=== PATIENT | female | born 1955 | race Caucasian/White ===

== ENCOUNTER 2023-02-21 19:58 | Inpatient (IN) | payer MEDICARE, SELFPAY ==
--- NOTE | ~2023-02-21 | CT_ITS ---
EXAMINATION: CT HEAD WITHOUT CONTRAST CLINICAL INFORMATION: Slurred speech COMPARISON: 11/26/2018 TECHNIQUE: Contiguous axial imaging was performed from the skull base to vertex without intravenous administration of contrast. This CT examination was performed using dose optimization techniques as appropriate, variously including the following: *Automated exposure control *Adjustment of mA and/or kV according to patient size (this includes techniques or standardized protocols for targeted exams where dose is matched to indication/reason for exam; i.e. extremities or head) *Use of iterative reconstruction technique DLP: 593 mGy-cm FINDINGS: There is no evidence of acute intracranial hemorrhage or territorial infarction. No abnormal mass effect or midline shift is seen. [place] to white matter differentiation is well preserved. No extra-axial fluid collections are identified. The ventricles are normal in size. There is no abnormal attenuation within the brain parenchyma. The osseous structures and soft tissues are normal. The mastoid air cells and visualized portions of the paranasal sinuses are notable for left maxillary sinus disease.. CT/CT head/brain wo IV con IMPRESSION: No acute intracranial pathology.
--- NOTE | ~2023-02-21 | XR_ITS ---
EXAMINATION: XR CHEST CLINICAL INFORMATION: Weakness. COMPARISON: 11/26/2018 chest radiograph. TECHNIQUE: 2 views of the chest were obtained. FINDINGS: Support devices: Right-sided central venous port with tip terminating in the superior vena cava. Coarsened interstitial markings are seen bilaterally with opacities at the lung bases. Irregular pleural thickening extending along the lateral margin of the left upper lobe measuring approximately 4.8 x 1.4 cm. The heart and mediastinal structures are unremarkable. XR/XR chest 2V IMPRESSION: 1. Irregular pleural thickening laterally in the left upper lobe was not seen previously. Malignancy cannot be excluded. 2. Coarsened lung markings also represent interval increase in the previous study this could represent progression of chronic changes however an acute process cannot be excluded. A CT scan is recommended.
[2023-02-21 20:06] VITALS: BP 87/43; BP 90/50; PULSE 109; PULSE 112; RESP 18; O2SAT 91; O2SAT 96; BMI 20.8
--- NOTE | 2023-02-21 20:15 | ECG_ITS ---
Test Reason : AMS Blood Pressure : / mmHG Vent. Rate : 108 BPM Atrial Rate : 108 BPM P-R Int : 136 ms QRS Dur : 072 ms QT Int : 306 ms P-R-T Axes : 058 014 214 degrees QTc Int : [address] & T wave abnormality, consider inferolateral ischemia Abnormal ECG When compared with ECG of 26-NOV-2018 19:58, Nonspecific T wave abnormality, worse in Inferior leads T wave inversion now evident in Anterolateral leads Referred By: Tessie Soto Electronically Signed By:ADELFO CHONG
[2023-02-21] MEDS: 0.9 % Sodium Chloride 1,000 ML 999 ML IV (20:22)
--- NOTE | 2023-02-21 20:24 | ED_ITS ---
HPI - General Adult General Chief complaint: General Medical Stated complaint: LETHARGIC CHEMO PT Time Seen by Provider: 02/21/23 20:04 Source: patient and EMS Mode of arrival: EMS Limitations: no limitations History of Present Illness HPI narrative: 67 yo female with history of ovarian cancer w/ mets followed by oncology Dr Nichols ([facility]) on palliative chemotherapy here with concern for weakness, lethargy since receiving chemo on Wednesday. Patient reports >12 hrs ago she noticed difficulty with finding words. No headache, dizziness, chest pain, shortness of breath, abdominal pain, vomiting, diarrhea, fevers, chills. Of note, patient has a chronic left chest wound involving her breast which she reports does not look worsening. Related Data Allergies Allergy/AdvReac Type Severity Reaction Status Date / Time No Known Allergies Allergy Unverified 03/14/20 18:25 [No Known Allergies*] Review of Systems Review of Systems: Yes all other systems are reviewed and are negative Constitutional: Constitutional: Reports no additional constitutional complaints, Denies body ache(s), Denies chills, Reports fatigue, Denies fever(s), Denies headache(s) and Reports weakness Eyes: Eyes: Reports no additional eye complaints and Denies change in vision ENT: Reports system reviewed and no additional complaints, except as documented, Denies dizziness, Denies headache(s), Denies nasal congestion, Denies nasal discharge and Denies neck pain Cardiovascular: Cardiovascular: Reports no additional cardiovascular complaints, Denies chest pain, Denies leg edema and Denies dyspnea Respiratory: Respiratory: Reports no additional respiratory complaints, Denies cough and Denies dyspnea Gastrointestinal: Gastrointestinal: Reports no additional gastrointestinal complaints, Denies abdominal pain, Denies diarrhea, Denies nausea and Denies vomiting Genitourinary: Genitourinary: Reports no additional female genitourinary compl aints and Denies urinary incontinence Musculoskeletal: Musculoskeletal: Reports no additional musculoskeletal complaints, Denies back pain, Denies arthralgias, Denies joint swelling, Denies neck pain, Denies numbness and Denies tingling Integumentary/Breasts: Skin/Breast: Reports system reviewed and no additional complaints, except as docu and Denies rash Neurologic: Reports system reviewed and no additional complaints, except as documented, Denies dizziness, Denies headache(s), Denies numbness, Denies tingling and Reports weakness Endocrine: Endocrine: Reports fatigue [facility] Past Medical History Attestation statement: The following information was validated with the patient. Source: old records reviewed and nursing notes reviewed Social History Social History Alcohol intake: current Alcohol intake frequency: 0-2 drinks per day Alcohol type: wine Smoked in Last 30 Days: No Use of substances other than those prescribed or required for medical reasons: No Advance Directives: No Advance Directives Information Provided: Yes Physical Exam ED Vital Signs: Vital Signs - 24 hr 02/21/23 20:06 02/21/23 20:27 Pulse Rate 109 H Respiratory Rate 18 Blood Pressure 87/43 L 103/46 L Pulse Oximetry 91 L Oxygen Delivery Method Room Air BMI result Body Mass Index 20.8 Const General: alert and ill appearing Orientation/consciousness: patient oriented x3 Limitations: no limitations HENMT Head: Yes normal to inspection Ears: hearing grossly normal bilaterally Eyes General: appearance normal, both eyes and all related structures Pupils: Equal, round and reactive pupils present Neck Neck: Yes normal visual inspection, Yes full ROM, Yes no lymphadenopathy and Yes no meningeal signs Chest Chest/axillae images: 1. 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-brown stool heme negative Inspection: Yes normal to inspection Palpation (GI): Soft to palpation and nontender General: Yes no CVA tenderness Back/Spine/Pelvis Back: no CVA tenderness Thoracic/Lumbar Spine: thoracic and lumbar spine normal to inspection Skin General skin exam: no rashes or lesions noted Neuro Other: During conversation patient having difficulty finding words-speech is not slurred General: patient oriented x3, moves all extremities, no meningeal signs and Unable to assess gait Cranial nerves: Yes CN's II-XII intact bilaterally, Yes Equal, round and reactive pupils present, Yes Bilaterally intact EOM present, Yes Nystagmus not present, Yes Normal facial strength present and Yes Midline tongue present Cognition (Neuro): normal cognition Gait exam (Neuro): Unable to assess gait Motor exam (neuro): 5/5 motor strength present throughout Sensory Exam: Normal double simultaneous stimulation for sensation Extrem General: Yes normal to inspection NIH Stroke Scale Internal: Initial- Upon Arrival Level of Consciousness: Alert Level of Consciousness Questions: Answers both questions correctly Level of Consciousness Commands: Performs both tasks correctly Best Gaze: Normal Visual: No visual loss Facial Palsy: Normal Motor Arm (Right): No drift Motor Arm (Left): No drift Motor Leg (Right): No drift Motor Leg (Left): No drift Limb Ataxia: Absent Sensory: Normal Best Language: No aphasia Dysarthia: Mild to moderate dysarthria Extinction and Inattention: No abnormality Score: 1 Course Course Course Narrative: 0-Informed patient has fever and low blood pressure. NS 30cc/kg ordered. Nursing aware. Reevaluation(s) Reevaluation #1: 0020-focused sepsis exam done. Medications Administered Generic Name Dose Route Start Last Admin Trade Name Freq PRN Reason Stop Dose Admin Sodium Chloride 1,548 mls @ 1,548 mls/hr 02/21/23 23:11 02/21/23 23:20 Ns 30 ml/kg infuse over 1 hr (1548 ml) 02/22/23 00:10 1,548 mls/hr IV Administration .Q1H STA Discontinued Medications Generic Name Dose Route Start Last Admin Trade Name Freq PRN Reason Stop Dose Admin Acetaminophen 975 mg 02/21/23 23:11 02/21/23 23:21 Acetaminophen 325 Mg Tablet PO 02/21/23 23:12 975 mg ONCE ONE Administration Sodium Chloride 1,000 mls @ 999 mls/hr 02/21/23 20:16 02/21/23 20:22 Ns IV 02/21/23 21:16 999 mls/hr .Q1H1M STA Administration Ceftriaxone Sodium 1 gm/ 50 mls @ 100 mls/hr 02/21/23 20:17 02/21/23 21:29 Sodium Chloride IV 02/21/23 20:46 100 mls/hr ONCE ONE Administration Magnesium Sulfate 2 gm in 50 mls @ 25 mls/hr 02/21/23 22:09 02/21/23 23:30 Magnesium Sulfate/H2o IV 02/22/23 00:08 Infused ONCE ONE Infusion Medical Decision Making Medical Decision Making MDM Narrative: 67 yo female with history of ovarian cancer w/ mets followed by oncology Dr Nichols ([facility]) on weekly palliative chemotherapy here with concern for weakness, lethargy since receiving chemo on Wednesday. Patient reports >12 hrs ago she noticed difficulty with finding words. No headache, dizziness, chest pain, short ness of breath, abdominal pain, vomiting, diarrhea, fevers, chills. Of note, patient has a chronic left chest wound involving her breast which she reports does not look worsening. ON arrival patient is ill appearing, quite frail. Her blood pressure is 80's systolic although she tells me her blood pressure is normally low. She is afebrile She is having difficulty finding her words otherwise normal neuro Will need labs including blood cultures/lactic acid, CXR, CT head, covid screen, UA. Will give IVF. At this time infection is considered and so I will give a dose of antibiotics. NIH 1-not tpa candidate d/t length of symptoms Differential Diagnosis Differential Diagnoses: The differential diagnosis associated with the present ation includes brain mets, ICH vs CVA Electrolyte abnormaity Anemia, low concern with GIB with brown stool on rectal, occult negative infection-PNA/UTI/bacteremia, neutropenic fever Admission/Observation Consideration of admission/observation: Escalation of care including admission/observation considered Patient with anemia, leukopenia, hypomagnesemia, hyponatremia-necessitating IV replacement Patient also with difficulty with word finding with history of ovarian cancer with Mets. CT head is negative but patient may require advanced imaging and admission Consult Healthcare Provider Management of the patient was discussed with: Hospitalist Discussed patient with Dr. Sanders who accepted admission Lab Data MDM Lab Attestation statement: I reviewed the patient's lab results. Labs show anemia, leukopenia, hypomagnesemia, hyponatremia 02/21/23 21:06 02/21/23 21:07 Labs: Lab Results 02/21/23 02/21/23 02/21/23 Range/Units 21:06 21:06 21:07 WBC 0.3 L* (4.8-10.8) X10*3/uL RBC 2.05 L (4.20-5.50) X10*6/uL Hgb 5.8 L* (12.0-16.0) g/dl Hct 18.3 L* (37.0-47.0) % MCV 89.3 (80.0-98.0) fL MCH 28.3 (27.0-33.0) pg MCHC 31.7 (31.0-35.0) g/dl RDW 15.6 (11.0-16.0) % Plt Count 126 L (160-400) X10*3/uL MPV 12.0 (9.4-12.3) fL Immature Gran % (Auto) Cancelled Neut % (Auto) Cancelled Lymph % (Auto) Cancelled [place] % (Auto) Cancelled Eos % (Auto) Cancelled Baso % (Auto) Cancelled Lymph # (Auto) Cancelled [place] # (Auto) Cancelled Eos # (Auto) Cancelled Baso # (Auto) Cancelled Abs Immat Gran (auto) Cancelled Absolute Neuts (auto) Cancelled Absolute Nucleated RBC 0.000 (0.0-0.012) X10*3/uL Nucleated RBC % (auto) 0.0 (0.0-0.2) /100WBC Neutrophils % (Manual) 32 L (45-73) % Lymphocytes % (Manual) 36 (20-40) % Atypical Lymphs % (Man) 4 (0-6) % Monocytes % (Manual) 24 H (2-11) % Eosinophils % (Manual) 4 (0-4) % Abs Neuts (Manual) Not Reportable Lymphocytes # (Manual) 0.1 L (1.2-4.9) X10*3/uL Monocytes # (Manual) 0.1 (0.1-1.2) X10*3/uL Platelet Estimate NORMAL (NORMAL) Plt Morphology Comment NORMAL RBC Morphology NOTED Ovalocytes 1+ (5-14) /OIF [place] Cells 1+ (0-2) /OIF PT (11.1-13.3) SEC INR (0.9-1.1) Sodium 127 L (135-145) mmol/L Potassium 3.5 (3.3-5.1) mmol/L Chloride 95 L (96-108) mmol/L Carbon Dioxide 24 (22-29) mmol/L Anion Gap 12 (12-20) BUN 13 (9-16) mg/dL Creatinine 0.51 (0.5-1.4) mg/dL Estim Creat Clear Calc 85.8 Estimated GFR > 60 Random Glucose 115 (60-115) mg/dL Lactic Acid (0.5-2.0) mmol/L Calcium 7.7 L (8.4-10.2) mg/dL Magnesium 1.3 L* (1.6-2.6) mg/dL Total Bilirubin 1.0 (0.0-1.0) mg/dL Direct Bilirubin 0.6 H (0.0-0.5) mg/dL AST 23 (5-31) U/L ALT 17 (0-31) U/L Alkaline Phosphatase 141 H (39-117) U/L Total Creatine Kinase 9 L (26-140) U/L Troponin I High Sens < 2.7 (<3.5-17.0) ng/L Total Protein 5.7 L (6.5-8.0) g/dL Albumin 2.1 L (3.5-5.0) g/dL Stool Occult Blood (NEGATIVE) COVID-19 (NATHAN) (Negative) COVID-19 Clin Com Blood Type Antibody Screen Crossmatch 02/21/23 02/21/23 02/21/23 Range/Units 21:07 21:07 21:26 WBC (4.8-10.8) X10*3/uL RBC (4.20-5.50) X10*6/uL Hgb (12.0-16.0) g/dl Hct (37.0-47.0) % MCV (80.0-98.0) fL MCH (27.0-33.0) pg MCHC (31.0-35.0) g/dl RDW (11.0-16.0) % Plt Count (160-400) X10*3/uL MPV (9.4-12.3) fL Immature Gran % (Auto) Neut % (Auto) Lymph % (Auto) [place] % (Auto) Eos % (Auto) Baso % (Auto) Lymph # (Auto) [place] # (Auto) Eos # (Auto) Baso # (Auto) Abs Immat Gran (auto) Absolute Neuts (auto) Absolute Nucleated RBC (0.0-0.012) X10*3/uL Nucleated RBC % (auto) (0.0-0.2) /100WBC Neutrophils % (Manual) (45-73) % Lymphocytes % (Manual) (20-40) % Atypical Lymphs % (Man) (0-6) % Monocytes % (Manual) (2-11) % Eosinophils % (Manual) (0-4) % Abs Neuts (Manual) Lymphocytes # (Manual) (1.2-4.9) X10*3/uL Monocytes # (Manual) (0.1-1.2) X10*3/uL Platelet Estimate (NORMAL) Plt Morphology Comment RBC Morphology Ovalocytes /OIF [place] Cells /OIF PT 20.9 H (11.1-13.3) SEC INR 1.7 H (0.9-1.1) Sodium (135-145) mmol/L Potassium (3.3-5.1) mmol/L Chloride (96-108) mmol/L Carbon Dioxide (22-29) mmol/L Anion Gap (12-20) BUN (9-16) mg/dL Creatinine (0.5-1.4) mg/dL Estim Creat Clear Calc Estimated GFR Random Glucose (60-115) mg/dL Lactic Acid 1.3 (0.5-2.0) mmol/L Calcium (8.4-10.2) mg/dL Magnesium (1.6-2.6) mg/dL Total Bilirubin (0.0-1.0) mg/dL Direct Bilirubin (0.0-0.5) mg/dL AST (5-31) U/L ALT (0-31) U/L Alkaline Phosphatase (39-117) U/L Total Creatine Kinase (26-140) U/L Troponin I High Sens (<3.5-17.0) ng/L Total Protein (6.5-8.0) g/dL Albumin (3.5-5.0) g/dL Stool Occult Blood (NEGATIVE) COVID-19 (NATHAN) Negative (Negative) COVID-19 Clin Com See Note Blood Type Antibody Screen Crossmatch 02/21/23 02/21/23 Range/Units 22:27 22:34 WBC (4.8-10.8) X10*3/uL RBC (4.20-5.50) X10*6/uL Hgb (12.0-16.0) g/dl Hct (37.0-47.0) % MCV (80.0-98.0) fL MCH (27.0-33.0) pg MCHC (31.0-35.0) g/dl RDW (11.0-16.0) % Plt Count (160-400) X10*3/uL MPV (9.4-12.3) fL Immature Gran % (Auto) Neut % (Auto) Lymph % (Auto) [place] % (Auto) Eos % (Auto) Baso % (Auto) Lymph # (Auto) [place] # (Auto) Eos # (Auto) Baso # (Auto) Abs Immat Gran (auto) Absolute Neuts (auto) Absolute Nucleated RBC (0.0-0.012) X10*3/uL Nucleated RBC % (auto) (0.0-0.2) /100WBC Neutrophils % (Manual) (45-73) % Lymphocytes % (Manual) (20-40) % Atypical Lymphs % (Man) (0-6) % Monocytes % (Manual) (2-11) % Eosinophils % (Manual) (0-4) % Abs Neuts (Manual) Lymphocytes # (Manual) (1.2-4.9) X10*3/uL Monocytes # (Manual) (0.1-1.2) X10*3/uL Platelet Estimate (NORMAL) Plt Morphology Comment RBC Morphology Ovalocytes /OIF [place] Cells /OIF PT (11.1-13.3) SEC INR (0.9-1.1) Sodium (135-145) mmol/L Potassium (3.3-5.1) mmol/L Chloride (96-108) mmol/L Carbon Dioxide (22-29) mmol/L Anion Gap (12-20) BUN (9-16) mg/dL Creatinine (0.5-1.4) mg/dL Estim Creat Clear Calc Estimated GFR Random Glucose (60-115) mg/dL Lactic Acid (0.5-2.0) mmol/L Calcium (8.4-10.2) mg/dL Magnesium (1.6-2.6) mg/dL Total Bilirubin (0.0-1.0) mg/dL Direct Bilirubin (0.0-0.5) mg/dL AST (5-31) U/L ALT (0-31) U/L Alkaline Phosphatase (39-117) U/L Total Creatine Kinase (26-140) U/L Troponin I High Sens (<3.5-17.0) ng/L Total Protein (6.5-8.0) g/dL Albumin (3.5-5.0) g/dL Stool Occult Blood NEGATIVE (NEGATIVE) COVID-19 (NATHAN) (Negative) COVID-19 Clin Com Blood Type AB Positive Antibody Screen NEGATIVE Crossmatch See Detail Independent Interpretation I performed an independent interpretation of an: EKG, Plain X-Ray and CT Scan Interpretation: I independently reviewed the EKG which is sinus tachycardia with a rate of 108, normal MO, normal QRS normal QT I independently reviewed the CXR, CT scan of the head and agree with the rad report Radiology Impression Discussion of test interpretation with radiology: I have reviewed the rad iologist's reading. Radiologist Impression: [address] [address] [address] Scan Report Signed Patient: Brittney Snider MR#: [id number] : 1955 Acct:[id number] Age/Sex: 67 / F ADM Date: 02/21/23 Loc: .ED Attending Dr: Ordering Physician: Tessie Smith NP Date of Service: 02/21/23 Procedure(s): CT head/brain wo IV con Accession Number(s): [id number] cc: Tessie Smith NP~ EXAMINATION: CT HEAD WITHOUT CONTRAST CLINICAL INFORMATION: Slurred speech? COMPARISON: 11/26/2018 TECHNIQUE: Contiguous axial imaging was performed from the skull base to vertex without intravenous administration of contrast. This CT examination was performed using dose optimization techniques as appropriate, variously including the following: *Automated exposure control *Adjustment of mA and/or kV according to patient size (this includes techniques or standardized protocols for targeted exams where dose is matched to indication/reason for exam; i.e. extremities or head) *Use of iterative reconstruction technique DLP: 593 mGy-cm FINDINGS: There is no evidence of acute intracranial hemorrhage or territorial infarction. No abnormal mass effect or midline shift is seen. Holden to white matter differentiation is well preserved. No extra-axial fluid collections are identified. The ventricles are normal in size. There is no abnormal attenuation within the brain parenchyma. The osseous structures and soft tissues are normal. The mastoid air cells and visualized portions of the paranasal sinuses are notable for left maxillary sinus disease.. ? CT/CT head/brain wo IV con IMPRESSION: No acute intracranial pathology. [place] [address] XRay Report Signed Patient: Brittney Snider MR#: [id number] : 1955 Acct:[id number] Age/Sex: 67 / F ADM Date: 02/21/23 Loc: HO.ED Attending Dr: Ordering Physician: Tessie Smith NP Date of Service: 02/21/23 Procedure(s): XR chest 2V Accession Number(s): [id number] cc: Tessie Smith NP~ EXAMINATION: XR CHEST CLINICAL INFORMATION: Weakness. COMPARISON: 11/26/2018 chest radiograph. TECHNIQUE: 2 views of the chest were obtained. FINDINGS: Support devices: Right-sided central venous port with tip terminating in the superior vena cava. Coarsened interstitial markings are seen bilaterally with opacities at the lung bases. Irregular pleural thickening extending along the lateral margin of the left upper lobe measuring approximately 4.8 x 1.4 cm. The heart and mediastinal structures are unremarkable. XR/XR chest 2V IMPRESSION: 1. Irregular pleural thickening laterally in the left upper lobe was not seen previously. Malignancy cannot be excluded. 2. Coarsened lung markings also represent interval increase in the previous study this could represent progression of chronic changes however an acute process cannot be excluded. A CT scan is recommende Independent Historian Clinical information obtained from an independent historian. 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 Discussion with patient about goals of care and family. Patient is full code. Review of outpatient records Discharge Plan Discharge Clinical Impression: Leukopenia, Anemia, Hypomagnesemia, Acute hyponatremia, Alteration in speech Patient Disposition: Admitted As Inpatient
[2023-02-21 20:27] VITALS: BP 103/46
[2023-02-21 21:24] LABS: Mean Corpuscular HGB Conc 31.7 g/dl (31.0-35.0); Mean Corpuscular Hemoglobin 28.3 pg (27.0-33.0); Mean Corpuscular Volume 89.3 fL (80.0-98.0); Platelet Count 126 X10*3/uL (160-400); Red Blood Count 2.05 X10*6/uL (4.20-5.50); Red Cell Distribution Width 15.6 % (11.0-16.0)
[2023-02-21 21:29] LABS: COVID-19 Test Negative (Negative); IDNOW Serial# BCCEAD1C
[2023-02-21] MEDS: cefTRIAXone sodium 1 GM in 0.9 % Sodium Chloride 50 ML IV (21:29)
[2023-02-21 21:31] LABS: WBC ABN SCTR FOR CBC 1
[2023-02-21 21:39] LABS: Hematocrit 18.3 % (37.0-47.0); Hemoglobin 5.8 g/dl (12.0-16.0)
[2023-02-21 21:45] LABS: INTERNATIONAL NORM RATIO 1.7 (0.9-1.1); Prothrombin Time 20.9 SEC (11.1-13.3)
[2023-02-21 21:46] LABS: Lactic Acid 1.3 mmol/L (0.5-2.0)
[2023-02-21 21:59] LABS: Troponin-I High Sensitivity < 2.7 ng/L (<3.5-17.0)
[2023-02-21 22:05] LABS: Alanine Aminotransferase 17 U/L (0-31); Albumin Level 2.1 g/dL (3.5-5.0); Alkaline Phosphatase 141 U/L (39-117); Anion Gap 12 (12-20); Aspartate Amino Transferase 23 U/L (5-31); Bilirubin Direct 0.6 mg/dL (0.0-0.5); Blood Urea Nitrogen 13 mg/dL (9-16); Calcium 7.7 mg/dL (8.4-10.2); Carbon Dioxide 24 mmol/L (22-29); Chloride 95 mmol/L (96-108); Creatinine Clr Calc Pharmacy 85.8; Estimated Glomerular Filt Rate > 60; Glucose Random 115 mg/dL (60-115); Magnesium 1.3 mg/dL (1.6-2.6); Potassium 3.5 mmol/L (3.3-5.1); Sodium 127 mmol/L (135-145); Total Protein 5.7 g/dL (6.5-8.0)
[2023-02-21 22:35] LABS: Atypical Lymphs Percent Manual 4 % (0-6); Eosinophils Percent Manual 4 % (0-4); Lymphocytes Percent Manual 36 % (20-40); Monocytes Percent Manual 24 % (2-11); Neutrophils Percent Manual 32 % (45-73)
[2023-02-21 22:36] LABS: Burr Cells 1+ (0-2) /OIF; Ovalocytes 1+ (5-14) /OIF; Platelet Estimate NORMAL (NORMAL); Platelet Morphology Comment NORMAL; RBC Morphology NOTED
[2023-02-21 22:38] LABS: Lymphocytes Absolute Manual 0.1 X10*3/uL (1.2-4.9); Monocytes Absolute Manual 0.1 X10*3/uL (0.1-1.2); White Blood Count 0.3 X10*3/uL (4.8-10.8)
[2023-02-21 22:39] LABS: OBS Int Ctl Valid YES; OBS1 NEGATIVE (NEGATIVE)
[2023-02-21] MEDS: Magnesium Sulfate/H2O 2 GM/50 ML PIGGYBACK IV (22:53)
[2023-02-21 22:59] VITALS: BP 90/40; PULSE 103; RESP 24; TEMP 38; O2SAT 95
--- NOTE | 2023-02-21 23:18 | PM.IMHP ---
History of Present Illness Date of Service: 02/21/23 Chief Complaint: increased weakness 67-year-old female with history of stage IV ovarian cancer, left arm lymphedema due to cancer spread comes into the hospital with complaints of increased weakness. Patient is currently undergoing palliative chemotherapy, and last session was about 4 days ago. Patient reports no nausea vomiting, chest pain, no abdominal pain, no diarrhea constipation, no urinary symptoms and no lower extremity edema. Just generalized weakness . She denies any dizziness, headache and no change in vision. On arrival to the ED patient hemodynamically stable with slightly increased heart rate, blood pressure in the 80s over 40s, but asymptomatic Labs are significant for WBC count of 0.3, hemoglobin of 5.8, hematocrit of 18.3, with <1000 neutrophils Sodium 127, INR 1.7, magnesium of 1.3, UA negative for acute infection Chest x-ray shows a regular pleural thickening laterally to the left upper lobe of, malignancy cannot be excluded, Head CT shows no acute intracranial pathology Patient will be admitted for further management Review of Systems Review of Systems: Yes all other systems are reviewed and are negative [facility] Medical History History of cataract HTN (hypertension), benign Hypothyroidism Lymphedema Metastatic malignant neoplasm to ovary Ovarian cancer Portal hypertension Surgical History History of salpingo-oophorectomy Social History Alcohol intake: current Alcohol intake frequency: 0-2 drinks per day Alcohol type: wine Patient Tobacco Use Status: Never used Tobacco Smoked in Last 30 Days: No Use of substances other than those prescribed or required for medical reasons: No Advance Directives: No Advance Directives Information Provided: Yes Nutrition Risks: Difficulty swallowing Meds Allergies Allergy/AdvReac Type Severity Reaction Status Date / Time No Known Allergies Allergy Unverified 03/14/20 18:25 [No Known Allergies*] Active Medications: Current Medications Acetaminophen (Acetaminophen 325 Mg Tablet) 650 mg PO Q6H PRN PRN Reason: Pain, Mild (Pain Scale 1-3) Docusate Sodium (Docusate Sodium 100 Mg Capsule) 100 mg PO DAILY PRN PRN Reason: Constipation Magnesium Sulfate (Magnesium Sulfate/H2o) 2 gm in 50 mls @ 25 mls/hr IV ONCE ONE Stop: 02/22/23 00:08 Last Admin: 02/21/23 22:53 Dose: 25 mls/hr Sodium Chloride (Ns) 1,548 mls @ 1,548 mls/hr 30 ml/kg infuse over 1 hr (1548 ml) IV .Q1H STA Stop: 02/22/23 00:10 Ondansetron HCl (Ondansetron Hcl 4 Mg/2 Ml Vial) 4 mg IVPUSH Q8H PRN PRN Reason: Nausea and Vomiting Sodium Chloride (0.9 % Sodium Chloride Flush 3 Ml Syringe) 3 ml IVFLUSH QSHIFT [facility] Physical Exam Vital Signs and Narrative: Vital Signs: Last Vital Signs Temp 100.4 F 02/21/23 22:59 Pulse 103 H 02/21/23 22:59 Resp 24 H 02/21/23 22:59 BP 90/40 L 02/21/23 22:59 Pulse Ox 95 02/21/23 22:59 O2 Del Method Room Air 02/21/23 22:59 BMI result Body Mass Index 20.8 Const: General: cooperative and no acute distress Orientation/consciousness: patient oriented x3 Eyes: General: appearance normal, both eyes and all related structures Resp: Effort & Inspection: normal respiratory effort Auscultation: clear to auscultation bilaterally Cardio: Rate: regular rate Rhythm: regular rhythm GI: Palpation (GI): Soft to palpation Auscultation: normal bowel sounds Skin: Other: Significant edema, as well as skin changes in the left upper arm Neuro: General: patient oriented x3 Cognition (Neuro): normal cognition Extrem: General: Yes normal to inspection and Yes no pedal edema Results Labs 02/21/23 21:06 02/21/23 21:07 Labs: Laboratory Results - last 24 hr 02/21/23 02/21/23 02/21/23 21:06 21:07 21:07 MCV 89.3 MCH 28.3 MCHC 31.7 RDW 15.6 Plt Count 126 L MPV 12.0 Immature Gran % (Auto) Cancelled Neut % (Auto) Cancelled Lymph % (Auto) Cancelled [place] % (Auto) Cancelled Eos % (Auto) Cancelled Baso % (Auto) Cancelled Lymph # (Auto) Cancelled [place] # (Auto) Cancelled Eos # (Auto) Cancelled Baso # (Auto) Cancelled Abs Immat Gran (auto) Cancelled Absolute Neuts (auto) Cancelled Absolute Nucleated RBC 0.000 Nucleated RBC % (auto) 0.0 Neutrophils % (Manual) 32 L Lymphocytes % (Manual) 36 Atypical Lymphs % (Man) 4 Monocytes % (Manual) 24 H Eosinophils % (Manual) 4 Abs Neuts (Manual) Not Reportable Lymphocytes # (Manual) 0.1 L Monocytes # (Manual) 0.1 Platelet Estimate NORMAL Plt Morphology Comment NORMAL RBC Morphology NOTED Ovalocytes 1+ (5-14) [place] Cells 1+ (0-2) PT INR Anion Gap 12 Estim Creat Clear Calc 85.8 Estimated GFR > 60 Random Glucose 115 Lactic Acid Calcium 7.7 L Magnesium 1.3 L* Total Bilirubin 1.0 Direct Bilirubin 0.6 H AST 23 ALT 17 Alkaline Phosphatase 141 H Total Creatine Kinase 9 L Total Protein 5.7 L Albumin 2.1 L Stool Occult Blood COVID-19 (NATHAN) Negative COVID-19 Clin Com See Note Crossmatch 02/21/23 02/21/23 02/21/23 21:07 21:26 22:27 MCV MCH MCHC RDW Plt Count MPV Immature Gran % (Auto) Neut % (Auto) Lymph % (Auto) [place] % (Auto) Eos % (Auto) Baso % (Auto) Lymph # (Auto) [place] # (Auto) Eos # (Auto) Baso # (Auto) Abs Immat Gran (auto) Absolute Neuts (auto) Absolute Nucleated RBC Nucleated RBC % (auto) Neutrophils % (Manual) Lymphocytes % (Manual) Atypical Lymphs % (Man) Monocytes % (Manual) Eosinophils % (Manual) Abs Neuts (Manual) Lymphocytes # (Manual) Monocytes # (Manual) Platelet Estimate Plt Morphology Comment RBC Morphology Ovalocytes [place] Cells PT 20.9 H INR 1.7 H Anion Gap Estim Creat Clear Calc Estimated GFR Random Glucose Lactic Acid 1.3 Calcium Magnesium Total Bilirubin Direct Bilirubin AST ALT Alkaline Phosphatase Total Creatine Kinase Total Protein Albumin Stool Occult Blood COVID-19 (NATHAN) COVID-Glamorous Travel Com Crossmatch See Detail 02/21/23 22:34 MCV MCH MCHC RDW Plt Count MPV Immature Gran % (Auto) Neut % (Auto) Lymph % (Auto) [place] % (Auto) Eos % (Auto) Baso % (Auto) Lymph # (Auto) [place] # (Auto) Eos # (Auto) Baso # (Auto) Abs Immat Gran (auto) Absolute Neuts (auto) Absolute Nucleated RBC Nucleated RBC % (auto) Neutrophils % (Manual) Lymphocytes % (Manual) Atypical Lymphs % (Man) Monocytes % (Manual) Eosinophils % (Manual) Abs Neuts (Manual) Lymphocytes # (Manual) Monocytes # (Manual) Platelet Estimate Plt Morphology Comment RBC Morphology Ovalocytes [place] Cells PT INR Anion Gap Estim Creat Clear Calc Estimated GFR Random Glucose Lactic Acid Calcium Magnesium Total Bilirubin Direct Bilirubin AST ALT Alkaline Phosphatase Total Creatine Kinase Total Protein Albumin Stool Occult Blood NEGATIVE COVID-19 (NATHAN) COVID-19 Clin Com Crossmatch Imaging Radiologist's Impressions: Impressions Head CT 02/21/23 20:46 IMPRESSION: No acute intracranial pathology. Chest X-Ray 02/21/23 21:54 IMPRESSION: 1. Irregular pleural thickening laterally in the left upper lobe was not seen previously. Malignancy cannot be excluded. 2. Coarsened lung markings also represent interval increase in the previous study this could represent progression of chronic changes however an acute process cannot be excluded. A CT scan is recommended. Assessment and Plan (1) Leukopenia: Status: Acute (2) Neutropenic fever: Status: Acute (3) Antineoplastic chemotherapy induced anemia: Status: Acute (4) Anemia: Status: Acute (5) Hypomagnesemia: Status: Acute (6) Acute hyponatremia: Status: Acute Plan 67 year old female with past medical history of stage IV ovarian cancer with lymphadenopathy comes into the hospital with weakness found to be anemic # chemotherapy-induced anemia - Acute anemia, received 2 unit of pRBC - follow CBC - hematology oncology consulted # neutropenic fever - patient developed a fever while in the ED, has neutropenia/leukopenia - will place on cefepime - blood cultures obtained - Hematology-Oncology consulted - neutropenic precaution # hypotension - patient reports that she runs systolic [place] in the 90s, she is awake alert, - perfusing well, has no evidence of sepsis - received 2.5 L of fluid as well as 2 units of PRBC - discussed case with ICU, as patient is alert oriented, perfusing well, has adequate urine output, at this time will admit to the medical floor - monitor BP closely # hypomagnesemia - repleted - follow Mag level # hyponatremia - mild - received IV fluids - follow BMP DVT prophylaxis: Heparin subQ Given patient's neutropenic fever patient will need a minimum 2 nights inpatient hospital stay for further management and monitoring Time Spent With Patient Time: Total time managing care of this patient today ____ minutes. Quality Stroke Does the patient have a stroke diagnosis?: No VTE Prior VTE?: No VTE Risk Level:: Medical - moderate - high VTE Device Contraindication: N/A - Device Ordered VTE Drug Contraindication: Treatment Not Indicated
[2023-02-21] MEDS: Acetaminophen 325 MG TABLET 975 MG PO (23:21)
[2023-02-21 23:24] LABS: Appearance Urine Clear; Color Urine Dark Yellow; Glucose Urine UA Negative (Negative); Leukocyte Esterase Urine Trace (Negative); Nitrite Urine Negative (Negative); UMIC TRIGGER UACC YES; Urine Blood Negative (Negative); Urine Ketones Trace mg/dL (Negative); Urine Protein 100 (2+) mg/dL (Neg-Trace)
[2023-02-21 23:26] LABS: Bacteria Urine None Seen (None Seen); Hyaline Casts Urine 0-2 /LPF (0-2); RBC Urine 0-2 /HPF (0-2); WBC Urine 0-5 /HPF (0-5)
[2023-02-21 23:40] VITALS: BP 97/49; PULSE 107; RESP 29; TEMP 37.1; O2SAT 94
[2023-02-22] VITALS (12 sets, daily range): BP systolic 81–125; BP diastolic 39–67; PULSE 67–100; RESP 15–22; TEMP 35.7–37.2; O2SAT 95–100; BMI 20.8
[2023-02-22] MEDS: cefEPime HCl 2 GM in 0.9 % Sodium Chloride 50 ML IV ×4 (01:59→23:28)
[2023-02-22] MEDS: 0.9 % Sodium Chloride Flush 3 ML SYRINGE IVFLUSH ×4 (02:00→20:53)
--- NOTE | 2023-02-22 04:07 | PC.NURSE ---
Perez text sent to Dr. Sanders regarding pts soft BP.
--- NOTE | 2023-02-22 04:27 | PC.NURSE ---
First unit of RBC's transfused with no complications or reactions. New orders per Dr. Sanders for one liter of LR.
[2023-02-22] MEDS: Lactated Ringers 1,000 ML 999 ML IV (04:34)
--- NOTE | 2023-02-22 04:45 | PC.NURSE ---
Second unit of RBC's started with no complications or reactions. Dr. Sanders at bedside.
--- NOTE | 2023-02-22 06:09 | PC.NURSE ---
Nurse to nurse report given to nurse Sonia. Pt going to room 486 and aware of plan of care.
--- NOTE | 2023-02-22 09:31 | PHA.MEDREC ---
Pharmacy Consult ? Medication Reconciliation Pharmacy has completed the medication reconciliation. Patient knew medications. Stated she was taking nadalol 80mg dailyeven though no claim history
[2023-02-22 10:38] LABS: Hematocrit 26.4 % (37.0-47.0); Hemoglobin 8.9 g/dl (12.0-16.0); Mean Corpuscular HGB Conc 33.7 g/dl (31.0-35.0); Mean Corpuscular Hemoglobin 30.3 pg (27.0-33.0); Mean Corpuscular Volume 89.8 fL (80.0-98.0); Mean Platelet Volume 11.7 fL (9.4-12.3); Platelet Count 168 X10*3/uL (160-400); Red Blood Count 2.94 X10*6/uL (4.20-5.50); Red Cell Distribution Width 14.8 % (11.0-16.0)
[2023-02-22 10:59] LABS: White Blood Count 0.4 X10*3/uL (4.8-10.8)
[2023-02-22 11:00] LABS: Alanine Aminotransferase 19 U/L (0-31); Albumin Level 2.2 g/dL (3.5-5.0); Alkaline Phosphatase 144 U/L (39-117); Anion Gap 10 (12-20); Aspartate Amino Transferase 30 U/L (5-31); Bilirubin Total 7.4 mg/dL (0.0-1.0); Blood Urea Nitrogen 16 mg/dL (9-16); Calcium 8.4 mg/dL (8.4-10.2); Carbon Dioxide 24 mmol/L (22-29); Chloride 102 mmol/L (96-108); Creatinine Clr Calc Pharmacy 89.3; Estimated Glomerular Filt Rate > 60; Glucose Random 116 mg/dL (60-115); Potassium 3.1 mmol/L (3.3-5.1); Sodium 133 mmol/L (135-145)
[2023-02-22 11:04] LABS: Band Neutrophils Percent 4 % (3-5); Lymphocytes Absolute Manual 0.1 X10*3/uL (1.2-4.9); Lymphocytes Percent Manual 20 % (20-40); Monocytes Absolute Manual 0.1 X10*3/uL (0.1-1.2); Monocytes Percent Manual 28 % (2-11); Neutrophils Absolute Manual 0.2 X10*3/uL (2.0-8.3); Neutrophils Percent Manual 48 % (45-73)
[2023-02-22 11:05] LABS: Acanthocytes 1+ (0-2) /OIF; Ovalocytes 1+ (5-14) /OIF; RBC Morphology NOTED
[2023-02-22 11:07] LABS: Burr Cells 1+ (0-2) /OIF; Platelet Estimate NORMAL (NORMAL); Platelet Morphology Comment NORMAL
--- NOTE | 2023-02-22 11:37 | HO.SKINPHOTO ---
Location: Category: Stage: Length: Width: Depth: cm Location: Category: Stage: Length: Width: Depth: cm Location: Category: Stage: Length: Width: Depth: cm Location: Category: Stage: Length: Width: Depth: cm Location: Category: Stage: Length: Width: Depth: cm Location: Category: Stage: Length: Width: Depth: cm
[2023-02-22] MEDS: Potassium Chloride ER 20 MEQ TAB.ER.PRT 40 MEQ PO (11:52)
[2023-02-22] MEDS: Levothyroxine Sodium 100 MCG TABLET PO (11:52)
--- NOTE | 2023-02-22 13:12 | PM.HEMONCCN ---
Subjective - Subjective Chief complaint: Weakness Patient: new to practice Consult date: 02/22/23 Primary Care Provider: Jovany Yo MD HPI - Consult Narrative Reason for consult: Neutropenia/pancytopenia Narrative: Brittney Snider is a 67 year old female is admitted for severe neutropenia and hypotension following chemotherapy. She was diagnosed with advanced ovarian cancer around 2014. She has been on multiple rounds of chemotherapy, her last treatment was a week ago. She is receiving Navelbine, her oncologist is Dr. Nihcols at [facility]. She presented because of intense weakness and 1 episode of diarrhea at home. Evaluation in the ED revealed a total WBC count of 0.3 with a hemoglobin of 5.8 and platelets of 126 K. she received 2 units PRBC, she was started on empiric cefepime for low-grade fever of 100.4 and neutropenia. She does not report headache, cough, sore throat or abdominal pain. No nausea or emesis. She reports symptoms fatigue and weakness. She was initially hypotensive with blood pressure of 87/43, she responded to IV fluids. She states that wound on the left chest wall has improved since she started this treatment. Review of Systems - Constitutional Reports as per HPI, Reports fatigue, Reports lack of energy, Reports malaise, Reports poor appetite - Cardiovascular Reports no additional cardiovascular complaints - Respiratory Reports no additional respiratory complaints - Gastrointestinal Reports no additional gastrointestinal complaints - Neurologic Reports no additional neurologic complaints, Reports abnormal speech, Denies dizziness, Denies headache(s), Denies numbness, Denies tingling, Reports weakness PMFSH Medical History: Medical History (Last Reviewed 02/22/23 @ 08:19 by Linsey Ware) History of cataract HTN (hypertension), benign Hypothyroidism Lymphedema Metastatic malignant neoplasm to ovary Ovarian cancer Portal hypertension Surgical History: Surgical History (Last Reviewed 02/22/23 @ 08:19 by Linsey Ware) History of salpingo-oophorectomy Social History: Social History (Last Reviewed 02/22/23 @ 08:19 by Linsey Ware) Living Situation History: Household Members: Spouse Housing: House Tobacco History: Patient Tobacco Use Status: Never used Tobacco Home Medications and Allergies Current Medications: Current Medications Acetaminophen (Acetaminophen 325 Mg Tablet) 650 mg PO Q6H PRN PRN Reason: Pain, Mild (Pain Scale 1-3) Docusate Sodium (Docusate Sodium 100 Mg Capsule) 100 mg PO DAILY PRN PRN Reason: Constipation Gabapentin (Gabapentin 300 Mg Capsule) 300 mg PO TID [facility] Heparin Sodium (Porcine) (Heparin Sodium,Porcine 5,000 Unit/Ml Vial) 5,000 unit SUBCUT Q12H [facility] Last Admin: 02/22/23 07:58 Dose: Not Given Cefepime HCl 2 gm/ Sodium (Chloride) 50 mls @ 100 mls/hr IV Q8H [facility] Last Infusion: 02/22/23 11:00 Dose: Infused Levothyroxine Sodium (Levothyroxine Sodium 100 Mcg Tablet) 100 mcg PO DAILY@0630 [facility] Last Admin: 02/22/23 11:52 Dose: 100 mcg Ondansetron HCl (Ondansetron Hcl 4 Mg/2 Ml Vial) 4 mg IVPUSH Q8H PRN PRN Reason: Nausea and Vomiting Sodium Chloride (0.9 % Sodium Chloride Flush 3 Ml Syringe) 3 ml IVFLUSH QSHIFT [facility] Last Admin: 02/22/23 08:14 Dose: 3 ml Tbo-Filgrastim (Tbo-Filgrastim 300 Mcg/0.5 Ml Syringe) 300 mcg SUBCUT ONCE ONE Stop: 02/22/23 13:04 Home Medications Medication Instructions Recorded Confirmed Type gabapentin 300 mg capsule 300 mg PO TID 02/22/23 02/22/23 History levothyroxine 100 mcg tablet 100 mcg PO DAILY 02/22/23 02/22/23 History magnesium 200 mg tablet 80 mg PO DAILY 02/22/23 02/22/23 History nadolol 80 mg tablet 80 mg PO DAILY 02/22/23 02/22/23 History Allergies Allergy/AdvReac Type Severity Reaction Status Date / Time No Known Allergies Allergy Unverified 03/14/20 18:25 [No Known Allergies*] Physical Exam Vital signs: Vital Signs Temp 98.9 F 02/22/23 12:00 Pulse 80 02/22/23 12:00 Resp 20 02/22/23 12:00 BP 111/57 L 02/22/23 12:00 Pulse Ox 98 02/22/23 12:00 O2 Del Method Room Air 02/22/23 12:00 Intake & Output 02/21/23 02/22/23 02/22/23 18:59 06:59 18:59 Intake Total 3148 / 3148 500 / 500 Balance 3148 / 3148 500 / 500 Intake: Intake, Oral Amount 0 / 0 Intake (Blood Product) Amount 350 / 350 350 / 350 Red Blood Cells (E0382) Unit 350 / 350 [id number] Red Blood Cells (E0382) Unit 0 / 0 350 / 350 [id number] Intake, IV Amount 2798 / 2798 150 / 150 0.9 % Sodium Chloride 1,548 ml 1548 / 1548 @ 1548 mls/hr IV .Q1H ST[facility] Rx#: [id number] 0.9 % Sodium Chloride 100 ml @ 100 / 100 100 / 100 100 mls/hr IV ONCE ONE Rx#: [id number] Lactated Ringers 1,000 ml @ 999 1000 / 1000 mls/hr IV .Q1H1M [facility] Rx#: [id number] Magnesium Sulfate/H2O 2 gm In 50 / 50 50 ml @ 25 mls/hr IV ONCE ONE Rx#:[id number] cefEPime HCl 2 gm In 0.9 % 50 / 50 50 / 50 Sodium Chloride 50 ml @ 100 mls /hr IV Q8H [facility] Rx#:[id number] cefTRIAXone sodium 1 gm In 0.9 50 / 50 % Sodium Chloride 50 ml @ 100 mls/hr IV ONCE ONE Rx#: [id number] Other: Urine Bedpan Urine Color Bertha Last Bowel Movement 02/22/23 Weight 51.6 kg 51.6 kg [place] Weight in Grams 90569 Weight 51.6 kg - Constitutional Present: no acute distress, average body habitus, chronically ill appearing - Routine HEENT Exam Head: Present: normal inspection Eye: Present: PERRL - Routine Neck Exam Present: supple. Absent: lymphadenopathy - Routine Respiratory Exam Present: CTAB. Absent: accessory muscle use - Routine Cardiovascular Exam Cardiovascular: Present: S1, S2, tachycardia - Routine Abdominal Exam Present: soft - Routine Extremities Exam Absent: pedal edema - Routine Skin Exam Present: lesions, wounds Hem/Onc Consult Result - Labs CBC & Chem 7: 02/22/23 10:20 02/22/23 10:20 Labs: Short CBC 02/21/23 02/22/23 Range/Units 21:06 10:20 WBC 0.3 L* 0.4 L* (4.8-10.8) X10*3/uL Hgb 5.8 L* 8.9 L D (12.0-16.0) g/dl Hct 18.3 L* 26.4 L D (37.0-47.0) % Plt Count 126 L 168 D (160-400) X10*3/uL BMP 02/21/23 02/22/23 21:07 10:20 Sodium 127 L 133 L Potassium 3.5 3.1 L Chloride 95 L 102 Carbon Dioxide 24 24 BUN 13 16 Creatinine 0.51 0.49 L Calcium 7.7 L 8.4 D Cardiac Enzymes 02/21/23 Range/Units 21:07 Total Creatine Kinase 9 L (26-140) U/L Liver Function 02/21/23 02/22/23 Range/Units 21:07 10:20 Total Bilirubin 1.0 7.4 H (0.0-1.0) mg/dL Direct Bilirubin 0.6 H (0.0-0.5) mg/dL AST 23 30 (5-31) U/L ALT 17 19 (0-31) U/L Alkaline Phosphatase 141 H 144 H (39-117) U/L Albumin 2.1 L 2.2 L (3.5-5.0) g/dL Urine 02/21/23 Range/Units 23:14 Urine Color Dark Yellow Urine Appearance Clear Urine pH 7.0 (5.0-9.0) Ur Specific [place] 1.020 (1.005-1.025) Urine Protein 100 (2+) H (Neg-Trace) mg/dL Urine Glucose (UA) Negative (Negative) mg/dL Assessment and Plan Patient Active problem list reviewed?: Yes (1) Neutropenic fever Status: Acute Assessment and plan: 1. This is 67-year-old woman with advanced [place] resistant ovarian cancer who is currently receiving Navelbine under the care of Dr. Nichols at [facility]. She has received multiple rounds of chemotherapy over the years starting in 2014. This was her 1st cycle of Navelbine, her day 8 treatment was a week ago. She is presented with severe pancytopenia/neutropenia requiring blood transfusion. She has been started on empiric antibiotics, cefepime for low-grade fever. Blood cultures are negative so far. Chest x-ray and UA was negative. No signs of bleeding. She received 2 units PRBC with good effect. I recommend a dose of Neupogen 300 mcg subQ x1 today as she remains neutropenic. Tumor of the left chest wall/breast appears to be getting better with no signs of infection. Continue current management. Thanks, will follow. - Time Spent With Patient Time Spent with Patient (in minutes): 20
--- NOTE | 2023-02-22 13:13 | HO.PM.IMPN ---
Subjective Subjective Date of Service: 02/23/23 Interval History: complaining of weakness otherwise denies fever,no chills, has chronic cough with difficulty bringing up phlegm, had 1 episode of loose stool this morning denies abdominal pain, no nausea, no vomiting, at bedside both and patient feels that left breast wound and left upper extremity wound and edema is improving. Review of Systems all other system reviewed and negative. Physical Exam Vital Signs: Vital Signs: Last Vital Signs Temp 98.9 F 02/22/23 12:00 Pulse 80 02/22/23 12:00 Resp 20 02/22/23 12:00 BP 111/57 L 02/22/23 12:00 Pulse Ox 98 02/22/23 12:00 O2 Del Method Room Air 02/22/23 12:00 BMI result Body Mass Index 20.8 Const: Other: General awake alert x3, in no acute distress. Neck supple no JVD. CVS regular rate rhythm, Respiratory lungs right base rhonchii,no respiratory distress, no wheeze, no rales, no use of accessory muscles Gastrointestinal abdomen soft, nontender, bowel sounds audible, no guarding , no rigidity. Lower Extremities no edema. left upper extremity lymphedema Neuro nonfocal , speech clear. Skin left breast multiple small nodules, no drainage, no fluctuation, left upper extremity medial upper arm open wound with small yellow eschar, no surrounding cellulitis,small dry wounds lower arm, discoloration left upper chest and shoulder Objective Data Active Medications Acetaminophen (Acetaminophen 325 Mg Tablet) 650 mg PO Q6H PRN PRN Reason: Pain, Mild (Pain Scale 1-3) Docusate Sodium (Docusate Sodium 100 Mg Capsule) 100 mg PO DAILY PRN PRN Reason: Constipation Gabapentin (Gabapentin 300 Mg Capsule) 300 mg PO TID [facility] Heparin Sodium (Porcine) (Heparin Sodium,Porcine 5,000 Unit/Ml Vial) 5,000 unit SUBCUT Q12H [facility] Last Admin: 02/22/23 07:58 Dose: Not Given Documented By: EZEKIEL Non-Admin Reason: Physician Held Med Cefepime HCl 2 gm/ Sodium (Chloride) 50 mls @ 100 mls/hr IV Q8H [facility] Last Infusion: 02/22/23 11:00 Dose: 0 mls/hr Documented By: EZEKIEL Levothyroxine Sodium (Levothyroxine Sodium 100 Mcg Tablet) 100 mcg PO DAILY@0630 [facility] Last Admin: 02/22/23 11:52 Dose: 100 mcg Documented By: EZEKIEL Ondansetron HCl (Ondansetron Hcl 4 Mg/2 Ml Vial) 4 mg IVPUSH Q8H PRN PRN Reason: Nausea and Vomiting Sodium Chloride (0.9 % Sodium Chloride Flush 3 Ml Syringe) 3 ml IVFLUSH QSHIFT [facility] Last Admin: 02/22/23 08:14 Dose: 3 ml Documented By: EZEKIEL Tbo-Filgrastim (Tbo-Filgrastim 300 Mcg/0.5 Ml Syringe) 300 mcg SUBCUT ONCE ONE Stop: 02/22/23 13:04 Labs 02/22/23 10:20 02/22/23 10:20 Labs: Laboratory Results - last 24 hr 02/21/23 02/21/23 02/21/23 21:06 21:07 21:07 MCV 89.3 MCH 28.3 MCHC 31.7 RDW 15.6 Plt Count 126 L MPV 12.0 Immature Gran % (Auto) Cancelled Neut % (Auto) Cancelled Lymph % (Auto) Cancelled Gage % (Auto) Cancelled Eos % (Auto) Cancelled Baso % (Auto) Cancelled Lymph # (Auto) Cancelled Gage # (Auto) Cancelled Eos # (Auto) Cancelled Baso # (Auto) Cancelled Abs Immat Gran (auto) Cancelled Absolute Neuts (auto) Cancelled Absolute Nucleated RBC 0.000 Nucleated RBC % (auto) 0.0 Neutrophils % (Manual) 32 L Band Neutrophils % Lymphocytes % (Manual) 36 Atypical Lymphs % (Man) 4 Monocytes % (Manual) 24 H Eosinophils % (Manual) 4 Abs Neuts (Manual) Not Reportable Lymphocytes # (Manual) 0.1 L Monocytes # (Manual) 0.1 Platelet Estimate NORMAL Plt Morphology Comment NORMAL RBC Morphology NOTED Ovalocytes 1+ (5-14) Hernan Cells 1+ (0-2) Acanthocytes (Spur) Smear Path Review SEE NOTE PT INR Anion Gap 12 Estim Creat Clear Calc 85.8 Estimated GFR > 60 Random Glucose 115 Lactic Acid Calcium 7.7 L Magnesium 1.3 L* Total Bilirubin 1.0 Direct Bilirubin 0.6 H AST 23 ALT 17 Alkaline Phosphatase 141 H Total Creatine Kinase 9 L Total Protein 5.7 L Albumin 2.1 L Urine Color Urine Appearance Urine pH Ur Specific [place] Urine Protein Urine Glucose (UA) Urine Ketones Urine Blood Urine Nitrite Ur Leukocyte Esterase Urine RBC Urine WBC Ur Squamous Epith Cells Urine Bacteria Hyaline Casts Stool Occult Blood COVID-19 (NATHAN) Negative COVID-19 Clin Com See Note Blood Type Antibody Screen Crossmatch 02/21/23 02/21/23 02/21/23 21:07 21:26 22:27 MCV MCH MCHC RDW Plt Count MPV Immature Gran % (Auto) Neut % (Auto) Lymph % (Auto) Gage % (Auto) Eos % (Auto) Baso % (Auto) Lymph # (Auto) Gage # (Auto) Eos # (Auto) Baso # (Auto) Abs Immat Gran (auto) Absolute Neuts (auto) Absolute Nucleated RBC Nucleated RBC % (auto) Neutrophils % (Manual) Band Neutrophils % Lymphocytes % (Manual) Atypical Lymphs % (Man) Monocytes % (Manual) Eosinophils % (Manual) Abs Neuts (Manual) Lymphocytes # (Manual) Monocytes # (Manual) Platelet Estimate Plt Morphology Comment RBC Morphology Ovalocytes [place] Cells Acanthocytes (Spur) Smear Path Review PT 20.9 H INR 1.7 H Anion Gap Estim Creat Clear Calc Estimated GFR Random Glucose Lactic Acid 1.3 Calcium Magnesium Total Bilirubin Direct Bilirubin AST ALT Alkaline Phosphatase Total Creatine Kinase Total Protein Albumin Urine Color Urine Appearance Urine pH Ur Specific [place] Urine Protein Urine Glucose (UA) Urine Ketones Urine Blood Urine Nitrite Ur Leukocyte Esterase Urine RBC Urine WBC Ur Squamous Epith Cells Urine Bacteria Hyaline Casts Stool Occult Blood COVID-19 (NATHAN) COVID-19 Clin Com Blood Type AB Positive Antibody Screen NEGATIVE Crossmatch See Detail 02/21/23 02/21/23 02/22/23 22:34 23:14 10:20 MCV 89.8 MCH 30.3 MCHC 33.7 RDW 14.8 Plt Count 168 D MPV 11.7 Immature Gran % (Auto) Cancelled Neut % (Auto) Cancelled Lymph % (Auto) Cancelled Gage % (Auto) Cancelled Eos % (Auto) Cancelled Baso % (Auto) Cancelled Lymph # (Auto) Cancelled Gage # (Auto) Cancelled Eos # (Auto) Cancelled Baso # (Auto) Cancelled Abs Immat Gran (auto) Cancelled Absolute Neuts (auto) Cancelled Absolute Nucleated RBC 0.000 Nucleated RBC % (auto) 0.0 Neutrophils % (Manual) 48 Band Neutrophils % 4 Lymphocytes % (Manual) 20 Atypical Lymphs % (Man) Monocytes % (Manual) 28 H Eosinophils % (Manual) Abs Neuts (Manual) 0.2 L Lymphocytes # (Manual) 0.1 L Monocytes # (Manual) 0.1 Platelet Estimate NORMAL Plt Morphology Comment NORMAL RBC Morphology NOTED Ovalocytes 1+ (5-14) [place] Cells 1+ (0-2) Acanthocytes (Spur) 1+ (0-2) Smear Path Review PT INR Anion Gap Estim Creat Clear Calc Estimated GFR Random Glucose Lactic Acid Calcium Magnesium Total Bilirubin Direct Bilirubin AST ALT Alkaline Phosphatase Total Creatine Kinase Total Protein Albumin Urine Color Dark Yellow Urine Appearance Clear Urine pH 7.0 Ur Specific [place] 1.020 Urine Protein 100 (2+) H Urine Glucose (UA) Negative Urine Ketones Trace Urine Blood Negative Urine Nitrite Negative Ur Leukocyte Esterase Trace H Urine RBC 0-2 Urine WBC 0-5 Ur Squamous Epith Cells 3-5 Urine Bacteria None Seen Hyaline Casts 0-2 Stool Occult Blood NEGATIVE COVID-19 (NATHAN) COVID-19 Clin Com Blood Type Antibody Screen Crossmatch 02/22/23 10:20 MCV MCH MCHC RDW Plt Count MPV Immature Gran % (Auto) Neut % (Auto) Lymph % (Auto) Gage % (Auto) Eos % (Auto) Baso % (Auto) Lymph # (Auto) Gage # (Auto) Eos # (Auto) Baso # (Auto) Abs Immat Gran (auto) Absolute Neuts (auto) Absolute Nucleated RBC Nucleated RBC % (auto) Neutrophils % (Manual) Band Neutrophils % Lymphocytes % (Manual) Atypical Lymphs % (Man) Monocytes % (Manual) Eosinophils % (Manual) Abs Neuts (Manual) Lymphocytes # (Manual) Monocytes # (Manual) Platelet Estimate Plt Morphology Comment RBC Morphology Ovalocytes Hernan Cells Acanthocytes (Spur) Smear Path Review PT INR Anion Gap 10 L Estim Creat Clear Calc 89.3 Estimated GFR > 60 Random Glucose 116 H Lactic Acid Calcium 8.4 D Magnesium Total Bilirubin 7.4 H Direct Bilirubin AST 30 ALT 19 Alkaline Phosphatase 144 H Total Creatine Kinase Total Protein 6.0 L Albumin 2.2 L Urine Color Urine Appearance Urine pH Ur Specific [place] Urine Protein Urine Glucose (UA) Urine Ketones Urine Blood Urine Nitrite Ur Leukocyte Esterase Urine RBC Urine WBC Ur Squamous Epith Cells Urine Bacteria Hyaline Casts Stool Occult Blood COVID-19 (NATHAN) COVID-19 Clin Com Blood Type Antibody Screen Crossmatch Assessment and Plan (1) Lymphedema: Status: Acute (2) Ovarian cancer: Status: Acute (3) Antineoplastic chemotherapy induced anemia: Status: Acute (4) Neutropenic fever: Status: Acute (5) Leukopenia: Status: Acute Plan 67 year old female with past medical history of stage IV ovarian cancer with lymphadenopathy comes into the hospital with weakness found to be anemic # chemotherapy-induced anemia - Acute anemia, received 2 unit of pRBC, hematocrit improved will follow CBC and transfuse as needed. # sepsis due to neutropenic fever on admission - WBC remains 0.4 this morning case discussed with Dr. Tate will give 1 dose of Granix and follow CBC, will repeat Granix if WBC remain less than 1000 continue IV cefepime day 1, chest x-ray showed no acute infiltrate oxygenation 98% on room air, UA unremarkable, likely GI source. # hypotension - present on admission blood pressure improved with IV fluids and blood transfusion. # hypomagnesemia - repleted, follow Mag level # hyponatremia - mild, likely hypovolemic hyponatremia improved with IV fluid sodium 133 today. # hypokalemia will replete and follow labs. # left upper extremity lymphedema, chronic left upper arm wound healing well.cont dressing change daily as before with metronidazole and Silvadene. Wound care consult pending DVT prophylaxis:?dc Heparin subQ due to profound anemia will place on compression boot Given patient's neutropenic fever patient will need continued inpatient hospital stay for IV antibiotics,further management and monitoring of cbc Time Spent With Patient Time: Total time managing care of this patient today ____ minutes. Quality Stroke Does the patient have a stroke diagnosis?: No VTE Prior VTE?: No VTE Risk Level:: Medical - moderate - high VTE Device Contraindication: N/A - Device Ordered VTE Drug Contraindication: Treatment Not Indicated
[2023-02-22] MEDS: Tbo-Filgrastim 300 MCG/0.5 ML SYRINGE SUBCUT (14:48)
[2023-02-22] MEDS: Gabapentin 300 MG CAPSULE PO ×2 (14:48→20:53)
[2023-02-22] MEDS: Loperamide HCl 2 MG CAPSULE PO ×2 (17:26→23:28)
[2023-02-22] MEDS: Melatonin 3 MG TABLET 6 MG PO (23:27)
[2023-02-23] MEDS: diphenhydrAMINE HCL 50 MG/ML VIAL 25 MG IVPUSH (03:04)
[2023-02-23 03:08] VITALS: BP 114/65; PULSE 91; RESP 18; TEMP 36.2; O2SAT 97
[2023-02-23] MEDS: Levothyroxine Sodium 100 MCG TABLET PO (06:11)
[2023-02-23 07:18] LABS: Hematocrit 24.5 % (37.0-47.0); Hemoglobin 8.2 g/dl (12.0-16.0); Mean Corpuscular HGB Conc 33.5 g/dl (31.0-35.0); Mean Corpuscular Hemoglobin 29.9 pg (27.0-33.0); Mean Corpuscular Volume 89.4 fL (80.0-98.0); Mean Platelet Volume 11.9 fL (9.4-12.3); Platelet Count 188 X10*3/uL (160-400); Red Blood Count 2.74 X10*6/uL (4.20-5.50); Red Cell Distribution Width 15.4 % (11.0-16.0)
[2023-02-23 07:27] VITALS: BP 114/68; PULSE 95; RESP 20; TEMP 36.5; O2SAT 98
[2023-02-23 07:28] LABS: Anion Gap 11 (12-20); Blood Urea Nitrogen 16 mg/dL (9-16); Calcium 8.6 mg/dL (8.4-10.2); Carbon Dioxide 22 mmol/L (22-29); Chloride 103 mmol/L (96-108); Creatinine Clr Calc Pharmacy 89.3; Estimated Glomerular Filt Rate > 60; Glucose Random 70 mg/dL (60-115); Potassium 3.3 mmol/L (3.3-5.1); Sodium 133 mmol/L (135-145)
[2023-02-23 07:29] LABS: White Blood Count 0.5 X10*3/uL (4.8-10.8)
--- NOTE | 2023-02-23 08:27 | HO.WOUNDCONS ---
History of Present Illness Data of Consult Service Date: 02/23/23 Requesting physician: Raymundo Olivas Primary Care Provider: Jovany Yo MD [facility] Reason for consult: open left chest and arm wounds [id number]: 67-year-old female diagnosed with ovarian cancer in [address] Nichols at [facility] with fungating left breast ulceration and associated medial arm ulcers. She has also had radiation. She is in the hospital for neutropenia associated with Navelbine and on associated precautions. She feels better today on Neupogen and cefepime. In regards to her concerns regarding these open and cancerous areas, she is not bothered by odor or significant drainage. She has a vast option of topical choices for this area that she brought in from home including a metronidazole/Silvadene combination cream and lymphedema wraps that are clearly associated with OT expertise, compressive garment of the hand. Denies fever. Appetite is mediocre. Review of Systems Review of Systems: Denies odor. Appetite is mediocre. Drainage from the left arm wound exceed that of the left chest wall. She has moderate pain in these open areas and tenderness is reported with removal of the bandage. Denies fever. No redness. [facility] Medical History (Updated 02/23/23 @ 08:34 by JOLANTA Jimenez) History of cataract HTN (hypertension), benign Hypothyroidism Lymphedema Metastatic malignant neoplasm to ovary Ovarian cancer Portal hypertension Surgical History (Updated 02/22/23 @ 13:24 by Nivia Tate MD) History of salpingo-oophorectomy Social History Household Members: Spouse Housing: House Alcohol intake: current Alcohol intake frequency: 0-2 drinks per day Alcohol type: wine Patient Tobacco Use Status: Never used Tobacco Meds Allergies Allergy/AdvReac Type Severity Reaction Status Date / Time No Known Allergies Allergy Unverified 03/14/20 18:25 [No Known Allergies*] Active Medications: Current Medications Acetaminophen (Acetaminophen 325 Mg Tablet) 650 mg PO Q6H PRN PRN Reason: Pain, Mild (Pain Scale 1-3) Docusate Sodium (Docusate Sodium 100 Mg Capsule) 100 mg PO DAILY PRN PRN Reason: Constipation Gabapentin (Gabapentin 300 Mg Capsule) 300 mg PO TID [facility] Last Admin: 02/22/23 20:53 Dose: 300 mg Heparin Sodium (Porcine) (Heparin Sodium,Porcine 5,000 Unit/Ml Vial) 5,000 unit SUBCUT Q12H [facility] Last Admin: 02/22/23 20:52 Dose: Not Given Cefepime HCl 2 gm/ Sodium (Chloride) 50 mls @ 100 mls/hr IV Q8H [facility] Last Infusion: 02/23/23 00:03 Dose: Infused Levothyroxine Sodium (Levothyroxine Sodium 100 Mcg Tablet) 100 mcg PO DAILY@0630 [facility] Last Admin: 02/23/23 06:11 Dose: 100 mcg Loperamide HCl (Loperamide Hcl 2 Mg Capsule) 2 mg PO Q4H PRN PRN Reason: Diarrhea Last Admin: 02/22/23 23:28 Dose: 2 mg Melatonin (Melatonin 3 Mg Tablet) 6 mg PO BEDTIME PRN PRN Reason: Insomnia Last Admin: 02/22/23 23:27 Dose: 6 mg Ondansetron HCl (Ondansetron Hcl 4 Mg/2 Ml Vial) 4 mg IVPUSH Q8H PRN PRN Reason: Nausea and Vomiting Sodium Chloride (0.9 % Sodium Chloride Flush 3 Ml Syringe) 3 ml IVFLUSH QSHIFT [facility] Last Admin: 02/22/23 20:53 Dose: 3 ml Home Medications Medication Instructions Recorded Confirmed Last Taken Type gabapentin 300 mg capsule 300 mg PO TID 02/22/23 02/22/23 02/21/23 History levothyroxine 100 mcg tablet 100 mcg PO DAILY 02/22/23 02/22/23 02/21/23 History magnesium 200 mg tablet 80 mg PO DAILY 02/22/23 02/22/23 02/21/23 History nadolol 80 mg tablet 80 mg PO DAILY 02/22/23 02/22/23 02/21/23 History Physical Exam Vital Signs and Narrative: Vital Signs: Last Vital Signs Temp 97.7 F 02/23/23 07:27 Pulse 95 02/23/23 07:27 Resp 20 02/23/23 07:27 BP 114/68 02/23/23 07:27 Pulse Ox 98 02/23/23 07:27 O2 Del Method Nasal Cannula 02/23/23 07:27 O2 Flow Rate 1 02/23/23 07:27 BMI result Body Mass Index 20.8 Left breast tissue is well managed with InterDry keeping odor and drainage to a minimum. There is cracking of the areola and hypertrophic friable tissue of the left breast. No surrounding maceration. The medial left arm ulceration looks to be exposing biceps muscle. This dressing was placed last night and is saturated with drainage. See orders to address this. There is no surrounding maceration, however. She is getting some ulceration and skin breakdown from moisture associated maceration. Excellent application of lymphedema wrap including hand garment, foam wrap and compressive lymphedema wrap of the left upper extremity applied by her . Results Labs 02/23/23 06:13 02/23/23 06:13 Labs: Laboratory Results - last 24 hr 02/21/23 02/22/23 02/22/23 21:06 10:20 10:20 MCV 89.8 MCH 30.3 MCHC 33.7 RDW 14.8 Plt Count 168 D MPV 11.7 Immature Gran % (Auto) Cancelled Neut % (Auto) Cancelled Lymph % (Auto) Cancelled [place] % (Auto) Cancelled Eos % (Auto) Cancelled Baso % (Auto) Cancelled Lymph # (Auto) Cancelled [place] # (Auto) Cancelled Eos # (Auto) Cancelled Baso # (Auto) Cancelled Abs Immat Gran (auto) Cancelled Absolute Neuts (auto) Cancelled Absolute Nucleated RBC 0.000 Nucleated RBC % (auto) 0.0 Neutrophils % (Manual) 48 Band Neutrophils % 4 Lymphocytes % (Manual) 20 Monocytes % (Manual) 28 H Abs Neuts (Manual) 0.2 L Lymphocytes # (Manual) 0.1 L Monocytes # (Manual) 0.1 Platelet Estimate NORMAL Plt Morphology Comment NORMAL RBC Morphology NOTED Ovalocytes 1+ (5-14) [place] Cells 1+ (0-2) Acanthocytes (Spur) 1+ (0-2) Smear Path Review SEE NOTE Anion Gap 10 L Estim Creat Clear Calc 89.3 Estimated GFR > 60 Random Glucose 116 H Calcium 8.4 D Magnesium 2.0 Total Bilirubin 7.4 H AST 30 ALT 19 Alkaline Phosphatase 144 H Total Protein 6.0 L Albumin 2.2 L 02/23/23 02/23/23 06:13 06:13 MCV 89.4 MCH 29.9 MCHC 33.5 RDW 15.4 Plt Count 188 MPV 11.9 Immature Gran % (Auto) Neut % (Auto) Lymph % (Auto) [place] % (Auto) Eos % (Auto) Baso % (Auto) Lymph # (Auto) [place] # (Auto) Eos # (Auto) Baso # (Auto) Abs Immat Gran (auto) Absolute Neuts (auto) Absolute Nucleated RBC 0.000 Nucleated RBC % (auto) 0.0 Neutrophils % (Manual) Band Neutrophils % Lymphocytes % (Manual) Monocytes % (Manual) Abs Neuts (Manual) Lymphocytes # (Manual) Monocytes # (Manual) Platelet Estimate Plt Morphology Comment RBC Morphology Ovalocytes Hernan Cells Acanthocytes (Spur) Smear Path Review Anion Gap 11 L Estim Creat Clear Calc 89.3 Estimated GFR > 60 Random Glucose 70 Calcium 8.6 Magnesium Total Bilirubin AST ALT Alkaline Phosphatase Total Protein Albumin Assessment and Plan (1) Lymphedema: Status: Acute (2) Ovarian cancer: Status: Acute Plan 67-year-old female with ovarian cancer stage IV with associated lymphadenopathy an open left chest ulceration, left medial biceps ulcer and left formal so. Agree with home topical approach and orders reflect this. The only change that I would highly recommend is to use alginate on the forearm because the drainage is excessive in can cause maceration. Calcium alginate cut to fit the open ulcers allows for waking of moisture localized to the wound without damaging the surrounding dermis. She is declining outpatient follow-up and has a good support structure outside of the hospital the can follow this as an outpatient. If she and her would like to be referred there is no opposition from the [facility] so long as were not interfering with a previously established plan. Time Spent With Patient Time: Total time managing care of this patient today ____ minutes.
[2023-02-23] MEDS: cefEPime HCl 2 GM in 0.9 % Sodium Chloride 50 ML IV ×2 (09:12→16:22)
[2023-02-23] MEDS: Gabapentin 300 MG CAPSULE PO ×3 (09:12→22:17)
[2023-02-23] MEDS: 0.9 % Sodium Chloride Flush 3 ML SYRINGE IVFLUSH (09:13)
[2023-02-23 09:55] LABS: Adenovirus F 40/41 Not Detected (Not Detect.); Astrovirus Not Detected (Not Detect.); Campylobacter Not Detected (Not Detect.); Cryptosporidium Not Detected (Not Detect.); Cyclospora cayetanensis Not Detected (Not Detect.); E. coli EAEC Not Detected (Not Detect.); E. coli EPEC Not Detected (Not Detect.); E. coli ETEC Not Detected (Not Detect.); E. coli STEC Not Detected (Not Detect.); Entamoeba histolytica Not Detected (Not Detect.); Giardia lamblia Not Detected (Not Detect.); Norovirus GI/GII Not Detected (Not Detect.); Plesiomonas shigelloides Not Detected (Not Detect.); Rotavirus A Not Detected (Not Detect.); Salmonella Not Detected (Not Detect.); Sapovirus Not Detected (Not Detect.); Shigella sp./EIEC Not Detected (Not Detect.); Vibrio Not Detected (Not Detect.); Vibrio Cholerae Not Detected (Not Detect.); Yersinia enterocolitica Not Detected (Not Detect.)
[2023-02-23 11:07] VITALS: BP 121/84; PULSE 105; RESP 20; TEMP 37.7; O2SAT 97
[2023-02-23] MEDS: Tbo-Filgrastim 300 MCG/0.5 ML SYRINGE SUBCUT (12:46)
--- NOTE | 2023-02-23 14:14 | HO.PM.IMPN ---
Subjective Subjective Date of Service: 02/23/23 Interval History: Requesting for sleeping medication has not slept in last 6 to days tried Benadryl and melatonin with no significant effect, complaining of poor appetite denies nausea vomiting no further bouts of diarrhea no abdominal pain, no fevers, no chills, no headache or dizziness, WBC remains low at 0.5. Review of Systems All other system reviewed and negative Physical Exam Vital Signs: Vital Signs: Last Vital Signs Temp 99.9 F 02/23/23 11:07 Pulse 105 H 02/23/23 11:07 Resp 20 02/23/23 11:07 BP 121/84 02/23/23 11:07 Pulse Ox 97 02/23/23 11:07 O2 Del Method Room Air 02/23/23 11:07 O2 Flow Rate 1 02/23/23 07:27 BMI result Body Mass Index 20.8 Const: Other: General? awake margo rt x3, in no acute distress.? Neck? supple no JVD. CVS ? regular rate rhy thm, Respiratory l ungs? right base r honchii,no respira tory distress, no wheeze, no rales, no use of accessor y muscles Gastroin testinal abdomen s oft, nontender, joshua wel sounds audible , no guarding , no rigidity. Lower E xtremities no iris a. left upper extr emity lymphedema N euro nonfocal , sp eech clear. Skin? left breast multip le small? nodules, no drainage, no f luctuation, left u pper extremity med ial upper arm open wound with small yellow eschar, no surrounding cellul itis,small dry wou nds lower arm, dis coloration left up per chest and shou lder. Objective Data Active Medications Acetaminophen (Acetaminophen 325 Mg Tablet) 650 mg PO Q6H PRN PRN Reason: Pain, Mild (Pain Scale 1-3) Docusate Sodium (Docusate Sodium 100 Mg Capsule) 100 mg PO DAILY PRN PRN Reason: Constipation Gabapentin (Gabapentin 300 Mg Capsule) 300 mg PO TID [facility] Last Admin: 02/23/23 09:12 Dose: 300 mg Documented By: DOBROB Heparin Sodium (Porcine) (Heparin Sodium,Porcine 5,000 Unit/Ml Vial) 5,000 unit SUBCUT Q12H [facility] Last Admin: 02/23/23 09:01 Dose: Not Given Documented By: FRANCHESCA Non-Admin Reason: Physician Held Med Cefepime HCl 2 gm/ Sodium (Chloride) 50 mls @ 100 mls/hr IV Q8H [facility] Last Infusion: 02/23/23 10:30 Dose: 0 mls/hr Documented By: FRANCHESCA Levothyroxine Sodium (Levothyroxine Sodium 100 Mcg Tablet) 100 mcg PO DAILY@0630 [facility] Last Admin: 02/23/23 06:11 Dose: 100 mcg Documented By: MARY Loperamide HCl (Loperamide Hcl 2 Mg Capsule) 2 mg PO Q4H PRN PRN Reason: Diarrhea Last Admin: 02/22/23 23:28 Dose: 2 mg Documented By: MARY Melatonin (Melatonin 3 Mg Tablet) 6 mg PO BEDTIME PRN PRN Reason: Insomnia Last Admin: 02/22/23 23:27 Dose: 6 mg Documented By: MARY Ondansetron HCl (Ondansetron Hcl 4 Mg/2 Ml Vial) 4 mg IVPUSH Q8H PRN PRN Reason: Nausea and Vomiting Oxycodone HCl (Oxycodone Hcl Immed Release 5 Mg Tablet) 5 mg PO Q6H PRN PRN Reason: Pain, Severe (Pain Scale 7-10) Sodium Chloride (0.9 % Sodium Chloride Flush 3 Ml Syringe) 3 ml IVFLUSH QSHIFT [facility] Last Admin: 02/23/23 09:13 Dose: 3 ml Documented By: FRANCHESCA Trazodone HCl (Trazodone Hcl 25 Mg Halftab) 25 mg PO BEDTIME [facility] Labs 02/23/23 06:13 02/23/23 06:13 Labs: Laboratory Results - last 24 hr 02/22/23 02/23/23 02/23/23 Unknown 06:13 06:13 MCV 89.4 MCH 29.9 MCHC 33.5 RDW 15.4 Plt Count 188 MPV 11.9 Absolute Nucleated RBC 0.000 Nucleated RBC % (auto) 0.0 Anion Gap 11 L Estim Creat Clear Calc 89.3 Estimated GFR > 60 Random Glucose 70 Calcium 8.6 Stl C. cayetanensis PCR Not Detected Stool Rotavirus A PCR Not Detected Stl Adenov F 40/41 PCR Not Detected Stool Astrovirus (PCR) Not Detected Stool Campylobacter PCR Not Detected Stool Cryptosporidium PCR Not Detected Stl Sh Tox Pr E STEC PCR Not Detected Stool E coli O157 PCR Not applicable Stl Enterotoxigenic E PCR Not Detected Stool EPEC (PCR) Not Detected Stool EAEC (PCR) Not Detected Stl E. histolytica PCR Not Detected Stool Giardia Lamblia PCR Not Detected Stl P. shigelloides PCR Not Detected Stool Salmonella PCR Not Detected Stool Sapovirus (PCR) Not Detected Stl Shigella/EIEC PCR Not Detected St Y.enterocolitica PCR Not Detected Stool Vibrio (PCR) Not Detected Stl Vibrio cholerae PCR Not Detected Stl Norovirus GI/GII PCR Not Detected Microbiology Microbiology Results: Microbiology 02/21/23 21:06 Blood Culture - Preliminary Blood - Venous No growth after 24 hours. 02/21/23 21:06 Blood Culture - Preliminary Blood - Venous No growth after 24 hours. Assessment and Plan (1) Lymphedema: Status: Acute (2) Ovarian cancer: Status: Acute (3) Antineoplastic chemotherapy induced anemia: Status: Acute (4) Neutropenic fever: Status: Acute (5) Leukopenia: Status: Acute Plan 67 year old female with past medical history of stage IV ovarian cancer with lymphadenopathy comes into the hospital with weakness found to be anemic # chemotherapy-induced anemia - Acute anemia, received 2 unit of pRBC, hematocrit improved will follow CBC and transfuse as needed. Slight drop in hematocrit his last 24 hours will follow CBC. # sepsis due to neutropenic fever on admission - WBC remains 0.5 this morning will repeat Granix 1, continue IV cefepime day 2, chest x-ray showed no acute infiltrate oxygenation 98% on room air, UA unremarkable, likely GI source. No further bout of diarrhea, stool studies negative # hypotension - blood pressure is stable is status post IV fluid and blood transfusion # hypomagnesemia - repleted, repeat magnesium 2 # hyponatremia - mild, likely hypovolemic hyponatremia improved with IV fluid sodium 133 today. # hypokalemia repleted and normalized # left upper extremity lymphedema, chronic left upper arm wound healing well.cont dressing change daily as before with metronidazole and Silvadene. Seen by wound care nurses they recommend silver alginate Patient wishes to continue her home dressings. DVT prophylaxis:? on compression boot Code status discussed with patient and her daughter patient wishes to be DNR Given patient's neutropenic fever patient will need continued inpatient hospital stay for IV antibiotics,further management and monitoring of cbc Time Spent With Patient Time: Total time managing care of this patient today ____ minutes. Quality Stroke Does the patient have a stroke diagnosis?: No VTE Prior VTE?: No VTE Risk Level:: Medical - moderate - high VTE Device Contraindication: N/A - Device Ordered VTE Drug Contraindication: Treatment Not Indicated
[2023-02-23 15:49] VITALS: BP 131/69; PULSE 108; RESP 18; TEMP 36.3; O2SAT 98
[2023-02-23 20:00] VITALS: BP 114/63; PULSE 100; RESP 19; TEMP 36.5; O2SAT 95
[2023-02-23] MEDS: traZODone HCL 25 MG HALFTAB PO (22:17)
[2023-02-23] MEDS: oxyCODONE HCl Immed Release 5 MG TABLET PO (22:17)
[2023-02-23] MEDS: Heparin Sodium,Porcine 5,000 UNIT/ML VIAL 5000 UNIT SUBCUT (22:18)
[2023-02-23 23:21] VITALS: BP 108/57; PULSE 98; RESP 18; TEMP 36.3; O2SAT 94
[2023-02-24] MEDS: 0.9 % Sodium Chloride Flush 3 ML SYRINGE IVFLUSH ×3 (01:00→15:44)
[2023-02-24] MEDS: cefEPime HCl 2 GM in 0.9 % Sodium Chloride 50 ML IV ×2 (01:00→09:32)
[2023-02-24 04:00] VITALS: BP 114/63; PULSE 92; RESP 18; TEMP 36.3; O2SAT 96
[2023-02-24] MEDS: Levothyroxine Sodium 100 MCG TABLET PO (06:43)
[2023-02-24 06:46] LABS: PLT CLUMP 1
[2023-02-24 06:48] LABS: Hematocrit 23.6 % (37.0-47.0); Hemoglobin 7.8 g/dl (12.0-16.0); Mean Corpuscular HGB Conc 33.1 g/dl (31.0-35.0); Mean Corpuscular Hemoglobin 29.7 pg (27.0-33.0); Mean Corpuscular Volume 89.7 fL (80.0-98.0); Mean Platelet Volume 12.3 fL (9.4-12.3); Red Blood Count 2.63 X10*6/uL (4.20-5.50); Red Cell Distribution Width 15.5 % (11.0-16.0)
[2023-02-24 06:53] LABS: Anion Gap 8 (12-20); Blood Urea Nitrogen 15 mg/dL (9-16); Carbon Dioxide 24 mmol/L (22-29); Chloride 104 mmol/L (96-108); Estimated Glomerular Filt Rate > 60; Glucose Random 80 mg/dL (60-115); Potassium 3.2 mmol/L (3.3-5.1); Sodium 133 mmol/L (135-145)
[2023-02-24 07:37] LABS: Platelet Count 114 X10*3/uL (160-400)
[2023-02-24 07:46] VITALS: BP 107/57; PULSE 57; RESP 20; TEMP 36.6; O2SAT 93
[2023-02-24 08:01] LABS: White Blood Count 0.8 X10*3/uL (4.8-10.8)
[2023-02-24] MEDS: Gabapentin 300 MG CAPSULE PO ×2 (09:32→15:44)
[2023-02-24 12:00] VITALS: BP 107/65; PULSE 107; RESP 20; TEMP 36.5; O2SAT 93
[2023-02-24] MEDS: Tbo-Filgrastim 300 MCG/0.5 ML SYRINGE SUBCUT (12:28)
[2023-02-24] MEDS: nadoloL 20 MG TABLET PO (12:28)
--- NOTE | 2023-02-24 13:45 | MHC.CM.PN ---
LATE ENTRY NOTE FOR 02/22/23, IMM DELIVERED TO BEDSIDE, CM MET W/PT AND AT BEDSIDE, PT REPORTS SHE LIVES W/, DENIES USE OF DME AND HOME SERVICES, REPORTING SHE HAD A VNA I THE PAST HOWEVER SINCE SHE IS NOT HOMEBOUND IT WAS ONLY FOR A SHORT TIME, PT REPORTS HER MEETS ALL OF HER NEEDS AND DENIES NEED FOR [facility]/HOME SERVICES. pt reports she is fully vaccinated against covid19, pcp on file is correct and pt reports she does have a hcp, copy has been requested. pt report her oncologist is Dr. Nichols at [facility] and she is currently receiving chemotherapy.
--- NOTE | 2023-02-24 14:10 | MHC.CM.PN ---
Addendum entered by Klarissa Small RN 02/24/23 15:33: PT EVALUATED BY P.T. WHO RECOMMENDED HOME PT, CM MET W/PT AND AT BEDSIDE AND THEY ARE AGREEABLE TO HOME PT HOWEVER WOULD LIKE 1 OR 2 VISITS ONLY. Original Note: PT MEDICALLY CLEARED FOR D/C HOME NO NEW SERVICES ORDERED AND PT WILL RESUME OUPT [facility]MO AT [facility] [place] FOR TRANSPORT.
[2023-02-24 14:27] VITALS: PULSE 112; O2SAT 88
--- NOTE | 2023-02-24 15:14 | P.DS_ITS ---
DS: Providers Provider Date of Service: 02/24/23 Date of admission: 02/21/23 22:49 Primary care physician: Jovany Yo MD Consults: 02/22/23 06:53 Consult to Hematology / Oncology Routine Consulting Provider: Nivia Tate Reason for consultation: chemotherapy induced neuropenia, fever DS: Diagnosis Discharge Diagnosis (1) Lymphedema: Status: Acute (2) Ovarian cancer: Status: Acute (3) Antineoplastic chemotherapy induced anemia: Status: Acute (4) Neutropenic fever: Status: Acute (5) Leukopenia: Status: Acute DS: Summary Hospital Course Hospital Course: Date of Service: 02/21/23 Chief Complaint: increased weakness 67-year-old female with history of stage IV ovarian cancer, left arm lymphedema due to cancer spread comes into the hospital with complaints of increased weakness.? Patient is currently undergoing palliative chemotherapy, and last session was about 4 days ago.? Patient reports no nausea vomiting, chest pain, no abdominal pain, no diarrhea constipation, no urinary symptoms and no lower extremity edema.? Just generalized weakness .? She denies any dizziness, headache and no change in vision. On arrival to the ED patient hemodynamically stable with slightly increased heart rate, blood pressure in the 80s over 40s, but asymptomatic Labs are significant for WBC count of 0.3, hemoglobin of 5.8, hematocrit of 18.3, with <1000 neutrophils Sodium 127, INR 1.7, magnesium of 1.3, UA negative for acute infection Chest x-ray shows a regular pleural thickening laterally to the left upper lobe of, malignancy cannot be excluded, Head CT shows no acute intracranial pathology Patient will be admitted for further management Hospital course: 67 year old female with past medical history of stage IV ovarian cancer with lymphadenopathy comes into the hospital with weakness found to be anemic # chemotherapy-induced acute anemia, patient treated with 2 units of packed RBC hematocrit improved and remains stable noted to have slight drop in hematocrit but will hold further transfusions repeat CBC outpatient # sepsis due to neutropenic fever on admission, WBC trending up received 3 dosages of Granix, treated with IV cefepime for 3 days chest x-ray showed no acute infiltrate, UA unremarkable likely GI source patient had no further bout of diarrhea tolerating diet therefore be discharged home on 2 more days of by mouth antibiotics to finish a 5 day course of antibiotics. # hypotension noted to have soft blood pressures dose of nadolol reduced to 20 mg # hypomagnesemia - repleted, repeat magnesium 2 # hyponatremia - mild, likely hypovolemic hyponatremia improved with IV fluid sodium 133 at discharge # hypokalemia repleted and normalized #? left upper extremity lymphedema, chronic left upper arm wound healing well.cont dressing change daily as before with metronidazole and Silvadene.? Seen by wound care nurses they recommend silver alginate ? ? Patient wishes to continue her home dressings, recommend outpatient follow- up with wound clinic. Time Spent with Patient Time attestation: Total time managing care of this patient today ____ minutes. Discharge coordination time: Greater than 30 minutes Quality: Safe Use of Opioids Does Pt have an Active Cancer Diagnosis on the Problem List?: No Quality: Stroke Does the patient have a stroke diagnosis?: No Physical Exam Vital Signs: Vital Signs: Last Vital Signs Temp 97.7 F 02/24/23 12:00 Pulse 112 H 02/24/23 14:27 Resp 20 02/24/23 12:00 BP 107/65 02/24/23 12:00 Pulse Ox 88 L 02/24/23 14:27 O2 Del Method Room Air 02/24/23 12:00 O2 Flow Rate 1 02/23/23 07:27 BMI result Body Mass Index 20.8 Const: Other: NGeneral? awake margo rt x3, in no acute distress.? Neck? supple no JVD. CVS ? regular rate rhy thm, Respiratory l ungs? right base r honchii,no respira tory distress, no wheeze, no rales, no use of accessor y muscles Gastroin testinal abdomen s oft, nontender, joshua wel sounds audible , no guarding , no rigidity. Lower E xtremities no iris a. left upper extr emity lymphedema N euro nonfocal , sp eech clear. Skin? left breast multip le small? nodules, no drainage, no f luctuation, left u pper extremity med ial upper arm open wound with small yellow eschar, no surrounding cellul itis,small dry wou nds lower arm, dis coloration left up per chest and shou lder DS: Data Data Completed and Pending Labs on day of discharge: Laboratory Results - last 24 hr 02/24/23 02/24/23 06:10 06:10 WBC 0.8 L* RBC 2.63 L Hgb 7.8 L Hct 23.6 L MCV 89.7 MCH 29.7 MCHC 33.1 RDW 15.5 Plt Count 114 L D MPV 12.3 Absolute Nucleated RBC 0.000 Nucleated RBC % (auto) 0.0 Sodium 133 L Potassium 3.2 L Chloride 104 Carbon Dioxide 24 Anion Gap 8 L BUN 15 Creatinine 0.54 Estim Creat Clear Calc 81.0 Estimated GFR > 60 Random Glucose 80 Calcium 10.0 D Preliminary micro results at discharge 02/21/23 21:06 Blood Culture - Preliminary Blood - Venous No growth after 48 hours. 02/21/23 21:06 Blood Culture - Preliminary Blood - Venous No growth after 48 hours. Discharge Plan Discharge Anticipated Discharge Date/Time: 02/24/23 10:44 Patient Disposition: Home Health Service Discharge Diagnosis: Neutropenic fever Sepsis Hyponatremia Hypo magnesemia high Hypokalemia Referrals: Jovany Yo MD [Primary Care Provider] - 1 Week Discharge Medications: New oxycodone 5 mg Tablet 5 mg PO Q6H PRN (Reason: Pain, Severe (Pain Scale 7-10)) Qty: 14 0RF Rx Instructions: Partial Fill upon patient request. trazodone 50 mg tablet 25 mg PO BEDTIME PRN (Reason: insomnia) Qty: 30 0RF nadolol 20 mg tablet 20 mg PO DAILY Qty: 30 0RF cefuroxime axetil 500 mg tablet 500 mg PO Q12H Qty: 4 0RF Continued levothyroxine 100 mcg tablet 100 mcg PO DAILY gabapentin 300 mg capsule 300 mg PO TID magnesium 200 mg Tablet 80 mg PO DAILY Rx Instructions: PATIENT CAN BRING FROM HOME Discontinued nadolol 80 mg Tablet 80 mg PO DAILY Discharge Orders: Discharge Order (Routine); Ordered 02/24/23 Ordered By: Raymundo Olivas Diet: Advance to usual diet Activity on Discharge: As tolerated Stand Alone Forms: Patient Portal Discharge page Care Plan Goals: Take Ceftin 1 tablet twice daily starting tomorrow for 2 days Decrease dose of Nadolol due to low blood pressures Take oxycodone for moderate to severe pain Take trazodone 25 mg at bedtime for insomnia Health Concerns: Continue home medications as above Plan of Treatment: Follow-up with primary care physician Oncology call for appointment. Outpatient follow-up at Wound Clinic call for appointment Assessment: As above
--- NOTE | 2023-02-24 15:34 | P.F2F_ITS ---
Service Date Service Date: 02/24/23 Encounter Date of encounter: 02/24/23 Reasons for Services Signs and symptoms assessed: weakness/gait training Reason for physical therapy: home safety and mobility and gait/transfer training Homebound: Leaving the home is medically contraindicated at this time without the asist of a device and/or another person due th the listed conditions above and below. Reason homebound: immunosuppression / infection risk and weakness related to hospital stay Certification: Based on the above findings, I certify that this patient is confined to the home and needs intermittent correction care, physical therapy and/or speech therapy, or continues to need occupational therapy. The patient is under my care, and I have initiated the establishment of the plan of care. The patient will be followed by a physician who will periodically review the plan of care. Time Spent With Patient Time: Total time managing care of this patient today ____ minutes.
[2023-02-24] MEDS: Heparin Sodium,Porcine Flush 50 UNITS/5 ML SYRINGE IVFLUSH (15:45)
== END 2023-02-24 16:16 | disposition home health service (06) | DRG 872 ==
LOC: HO.ED 22:48 → HO.EDOVER 23:18 → HO.IMC 02-22 05:32
PROVIDERS: Nurse Practitioner Family; Admitting Provider Internal Medicine; Emergency Provider Emergency Medicine; PCP Internal Medicine; Visit Provider Hospitalist
DX: A41.9 Sepsis, unspecified organism (principal); C56.9 Malignant neoplasm of unspecified ovary; E87.1 Hypo-osmolality and hyponatremia; C79.89 Secondary malignant neoplasm of other specified sites; E03.9 Hypothyroidism, unspecified; I95.9 Hypotension, unspecified; E87.6 Hypokalemia; Z66 Do not resuscitate; L98.499 Non-pressure chronic ulcer of skin of other sites with unspecified severity; D64.81 Anemia due to antineoplastic chemotherapy; I89.0 Lymphedema, not elsewhere classified; E86.1 Hypovolemia; E83.42 Hypomagnesemia; T45.1X5A Adverse effect of antineoplastic and immunosuppressive drugs, initial encounter; Z20.822 Contact with and (suspected) exposure to COVID-19; Z79.890 Hormone replacement therapy; Z79.899 Other long term (current) drug therapy
CPT/HCPCS: 36415; 70450; 71046; 80048; 80053; 80076; 81001; 82272; 82550; 83605; 83735; 84484; 85007; 85027; 85610; 86850; 86900; 86901; 86923; 87040; 87507; 87635; 93005; 97162; 99285; J0692; J0696; J1200; J1447; J1642; J1643; J3475; P9016

== ENCOUNTER → 2023-02-21 22:49 | Outpatient (BNV) | payer MEDICARE, SELFPAY | PROVIDERS: Admitting Provider Internal Medicine; Emergency Provider Emergency Medicine; PCP Internal Medicine; Visit Provider Internal Medicine | DX: C56.9 Malignant neoplasm of unspecified ovary (principal); D72.819 Decreased white blood cell count, unspecified; I89.0 Lymphedema, not elsewhere classified; D64.81 Anemia due to antineoplastic chemotherapy; T45.1X5A Adverse effect of antineoplastic and immunosuppressive drugs, initial encounter; R50.81 Fever presenting with conditions classified elsewhere | CPT/HCPCS: 99223; 99233; 99239; G0180 ==

== ENCOUNTER → 2023-02-21 22:49 | Outpatient (BNV) | payer MEDICARE, SELFPAY | PROVIDERS: Admitting Provider Internal Medicine; Emergency Provider Emergency Medicine; PCP Internal Medicine; Visit Provider Internal Medicine | DX: D70.9 Neutropenia, unspecified (principal); R50.81 Fever presenting with conditions classified elsewhere | CPT/HCPCS: 99222 ==

== ENCOUNTER 2023-03-08 13:47 | Outpatient (RCR) | payer MEDICARE, OTHER, SELFPAY | END 2023-04-07 14:37 | disposition home or self-care (01) | LOC: HO.WCC 13:47 | PROVIDERS: PCP Internal Medicine; Visit Provider Physician Assistant | DX: L98.493 Non-pressure chronic ulcer of skin of other sites with necrosis of muscle (principal); C44.509 Unspecified malignant neoplasm of skin of other part of trunk; C56.9 Malignant neoplasm of unspecified ovary; Z87.891 Personal history of nicotine dependence; Z92.3 Personal history of irradiation; Z92.21 Personal history of antineoplastic chemotherapy | CPT/HCPCS: 87070; 87073; 87077; 87186; 87205; 97602; 99214; 99215 ==